=== PATIENT | female | born 1980 | race Two or more races ===

== ENCOUNTER → 2024-08-14 | Outpatient (CLI) | payer MEDICAID, SELFPAY ==
--- NOTE | 2024-08-14 10:30 | XR_ITS ---
Examination: MRI abdomen, without contrast Date and time of exam: August 14, 2024 1104 hrs. Indications: Upper abdominal pain radiating to the back after eating beginning 4 months ago Technique: Multiple axial sagittal and coronal images of the abdomen have been obtained with the Siemens high-resolution 1.5 Leah MRI scanner. Images obtained include T2-weighted fat-suppressed sagittal sections, TR 3500, TE 46, T2 weighted coronal fat suppressed images, TR 3050, TE 84, T2-weighted transverse fat suppressed images, TR 3260, TE 63, proton density transverse images, TR 4720 TE 46, and T1 weighted coronal images, TR 560, TE 13. Findings: No focal liver lesion Hepatomegaly 18 cm No gallstones No common hepatic or common bile duct stones Negative for pancreatitis No dilated pancreatic duct Spleen is not enlarged No hydronephrosis No ascites Aorta normal size Impression: Mild to moderate hepatomegaly Normal gallbladder Normal common hepatic common bile duct Negative for pancreatitis Follow-up hepatobiliary sonography is still recommended
== END | disposition home or self-care (01) ==
LOC: SMRI 10:31
PROVIDERS: Referring Provider Physician Assistant; Visit Provider Physician Assistant
DX: R16.0 Hepatomegaly, not elsewhere classified (principal)
CPT/HCPCS: 74181

== ENCOUNTER 2024-10-28 21:21 | Emergency (ER) | payer MEDICAID, SELFPAY ==
[2024-10-28 21:22] VITALS: BMI 33.2
--- NOTE | 2024-10-28 21:29 | XR_ITS ---
EXAMINATION: Ankle, right 3 views . Technique: Ankle AP, oblique, lateral 3 views Date and time of exam: October 28, 2024 2146 hours INDICATIONS: Twisting ankle study with ankle pain FINDINGS: Lateral malleolar soft tissue swelling No acute fracture, tiny bone density at the fibular tip Small plantar posterior bony calcaneal spurs IMPRESSION: No acute fracture, no dislocation
[2024-10-28 22:42] VITALS: BP 126/78; PULSE 89; RESP 18; TEMP 36.6; O2SAT 99
--- NOTE | 2024-10-29 03:47 | EDNOTE_ITS ---
<Statement entered by Nikole James MD - 10/29/24 05:22> As co-signing physician, I was present and available for consult prn. I concur with the plan and care as documented by the midlevel provider. Lower Extremity Injury RME/HPI General Chief Complaint: Ankle/Foot Injury Stated Complaint: RIGHT ANKLE SWELLING AND PAIN Time Seen by Provider: 10/28/24 22:35 Arrival date/time: 10/28/24 21:21 44F with history of DM presents to ED with R ankle pain/swelling after she twisted it. Limitations: no limitations Related Data Home Medications ?Medication ?Instructions ?Recorded ?Confirmed metformin 850 mg tablet 850 mg PO BID 07/24/2007/24 Previous Rx's ?Medication ?Instructions ?Recorded amoxicillin 875 mg-potassium 1 tab PO BID #10 tabs clavulanate 125 mg tablet (Augmentin) blood sugar diagnostic (Blood #100 ea 07/28/20 Glucose Test strips) blood-glucose meter (Blood Glucose #1 ea 07/28/20 Monitoring kit) doxycycline hyclate 100 mg tablet 100 mg PO BID #10 ta bs 07/28/20 insulin glargine 100 unit/mL (3 15 unit (0.15 mL) subc ut BID #15 mL 07/28/20 mL) subcutaneous pen (Basaglar KwikPen U-100 Insulin) lancets 33 gauge (BD Ultra Fine #100 ea 07/28/20 Lancets) magnesium oxide 400 mg (241.3 mg 400 mg PO QDAY #14 ta bs 07/28/20 magnesium) tablet pen needle, diabetic 31 gauge x #50 ea 07/28/20 1 (Lite Touch Insulin Pen [place]) potassium chloride 20 mEq 40 meq (2 x 20 mEq) PO BIDWM #20 07/28/20 tablet,extended release(part/cryst) tabs thiamine HCl (vitamin B1) 100 mg 100 mg PO QDAY #30 ta bs 07/28/20 tablet (Vitamin B-1) Allergies Allergy/AdvReac Type Severity Reaction Status Date / Time No Known Allergies Allergy Verified 10/28/24 21:22 Review of Systems Review of Systems Systems Reviewed: All systems reviewed, normal except as documented Constitutional Constitutional: Reports system reviewed and no additional complaints, except as documented, Denies fever(s) and Denies headache(s) ENT Ears, Nose, Mouth, and Throat: Denies disequilibrium and Denies headache(s) Cardiovascular Cardiovascular: Reports system reviewed and no additional complaints, except as documented, Denies chest pain and Denies dyspnea Respiratory Respiratory: Reports system reviewed and no additional complaints, except as documented, Denies cough and Denies dyspnea Gastrointestinal Gastrointestinal: Reports system reviewed and no additional complaints, except as documented, Denies abdominal pain, Denies nausea and Denies vomiting Musculoskeletal Musculoskeletal: Reports as per HPI, Reports arthralgias and Reports joint swelling Neurologic Neurologic: Reports system reviewed and no additional complaints, except as documented, Denies confusion, Denies disequilibrium and Denies headache(s) Psychiatric Psychiatric: Denies confusion Past Medical History Past Medical History NEUROLOGIC: Negative Neurological Disorders or Seizures CARDIAC: Negative Cardiac Disorders or Congestive Heart Failure RESPIRATORY: Negative Chronic Obstructive Pulmonary Disease (COPD) or Asthma GASTROINTESTINAL: Negative Gastrointestinal Disorders GENITOURINARY: Negative Genitourinary Disorders or Renal Disease MUSCULOSKELETAL: Negative Musculoskeletal Disorders ENDOCRINE: Positive Endocrine Disorders and Diabetes Mellitus Type 2; Negative Diabetes Mellitus Type 1 HEMATOLOGIC: Negative Blood Disorders or Sickle Cell Disease OTHER HISTORY: Positive Hospitalization and Chicken Pox; Negative Autoimmune Disease, Blood Transfusions, Blood Transfusion Reaction, Anesthesia Reactions, Organ Transplant, MRSA, VRSA, Vancomycin-Resistant Enterococci, Human Immunodeficiency Virus (HIV), Measles, Mumps, Rubella ([place] Measles), Pertussis, Clostridium Difficile or Cancer Family History FAMILY HISTORY: Negative Family Psychiatric Problems, Family Respiratory Disorders, Family Cardiac Disorders, Family Gastrointestinal Problems, Family Cancer, Family Surgery or Family Anesthesia Reaction Surgical History SURGICAL: Positive Section; Negative Organ Transplant Social History SMOKING STATUS: Never smoker ED Exam General Limitations: Present no limitations General appearance: Present alert and in no apparent distress Head Head exam: Present atraumatic Eye Eye exam: Present normal appearance, PERRL and EOMI ENT ENT exam: Present normal exam, normal oropharynx and mucous membranes moist Neck Neck exam: Present normal inspection, full ROM and trachea midline Chest Chest inspection: Present normal inspection and symmetric chest wall rise Respiratory Respiratory exam: Present normal lung sounds bilaterally Cardiovascular Cardiovascular exam: Present regular rate, normal rhythm and normal heart sounds Abdominal Exam Abdominal exam: Present soft and normal bowel sounds Extremities Exam Extremities exam: Present full ROM Expanded Lower Extremity Exam Ankle exam: Present full ROM, tenderness (R) and swelling Back Exam Back exam: Present normal inspection and full ROM Neurological Exam Neurological exam: Present alert, oriented X3 and CN II-XII intact Psychiatric Psychiatric exam: Present normal affect and normal mood Skin Skin exam: Present warm, dry, intact and normal color Course Quality Measures none Orders Category Date Time Status Crutches .NOW Care 10/28/24 22:36 Completed pily wrap [Splint / Immobilizer] STAT Care 10/28/24 22:36 Completed XR ankle comp RT min 3V Stat Exams 10/28/24 21:29 Completed Vital Signs Vital signs: Vital Signs Temperature 98 F 10/28/24 22:42 Pulse Rate 89 10/28/24 22:42 Respiratory Rate 18 10/28/24 22:42 Blood Pressure 126/78 10/28/24 22:42 Pulse Oximetry (%) 99 10/28/24 22:42 Oxygen Delivery Method Room Air 10/28/24 22:42 O2 at 99% on RA and WNLs Extremity Injury, Lower MDM Narrative MDM Narrative:: 44F with history of DM presents to ED with R ankle pain/swelling after she twisted it. Physical exam reveals R ankle tenderness and swelling. ROM intact. Patient is afebrile, calm, and alert. XR no fx. Given PILY, crutches, and dianetic counselor. Patient data External records reviewed:: [facility] previous records Clinical information provided by:: patient Social determinants that could affect healthcare access:: none Patient has the following chronic illnesses:: DM How is presenting disease/condition affected by chronic disease/condition?: uneffected by Evaluation data The following diagnostics were reviewed and interpreted by me:: radiology exam(s) Lab and/or radiology exams considered but not ordered:: ordered Interpretation Summary: above Medications / Prescriptions Medications or Prescriptions considered but not ordered:: not ordered Medication administrations:: n/a Consultations Consultation(s) initiated? (list below): No Diagnosis Extremity Injury, Lower Differential Diagnosis: ankle sprain and strain, acute internal derangement of knee, puncture wound of foot, fracture of toe and ankle fracture Most likely diagnosis given after review of the tests above:: ankle sprain and strain Admission Indicated Admission indicated?: not indicated Admission Request Was there a request for admission?: No Disposition Plan Disposition Plan: Discharge Discharge Attestation Discharge Attestation: The patient and all family members were given an opportunity to ask questions and understood the discharge instructions. Discharge instructions specifically effects, indications for sooner follow up or return to the emergency department, and the expected course of current diagnosis. Patient condition: Stable Discharge Plan Plan Patient Disposition: HOME (Self Care) Discharge Disposition comment: Stable Prescriptions/Referrals Prescriptions/Med Rec: No Action metformin 850 mg Tablet 850 mg PO BID thiamine HCl (vitamin B1) [Vitamin B-1] 100 mg Tablet 100 mg PO QDAY Qty: 30 0RF potassium chloride 20 mEq Tablet,Er Particles/Crystals 40 meq PO BIDWM Qty: 20 0RF magnesium oxide 400 mg (241.3 mg magnesium) Tablet 400 mg PO QDAY Qty: 14 0RF amoxicillin-pot clavulanate [Augmentin] 875-125 mg tablet 1 tab PO BID Qty: 10 0RF doxycycline hyclate 100 mg tablet 100 mg PO BID Qty: 10 0RF Basaglar KwikPen U-100 Insulin 100 unit/mL (3 mL) insulin pen 15 unit subcut BID Qty: 15 0RF (DME) blood-glucose meter [Blood Glucose Monitoring] Kit See Rx Instructions .ROUTE .MEDSUPPLY Qty: 1 0RF Rx Instructions: As directed check BS 3 times daily (DME) Blood Glucose Test Strip See Rx Instructions .ROUTE .MEDSUPPLY Qty: 100 0RF Rx Instructions: As directed check BS 3 times daily (DME) pen needle, diabetic [Lite Touch Insulin Pen [place]uda] 31 gauge x 1/4 needle See Rx Instructions .ROUTE .MEDSUPPLY Qty: 50 0RF Rx Instructions: As directed check BS 3 times daily (DME) lancets [BD Ultra Fine Lancets] 33 gauge misc See Rx Instructions .ROUTE .MEDSUPPLY Qty: 100 0RF Rx Instructions: As directed check BS 3 times daily Referrals: Del Mendoza PA-C [Primary Care Provider] - In 1 week Problem List Clinical Impression: Sprain of ankle Patient/Caregiver Discharge Instructions Education Materials: ED Ankle Sprain (Adult) Additional Instructions: Please follow-up with PCP within 24-48 hours and return immediately if symptoms worsen. If problem persists, recommend outpatient PT and/or MRI follow-up. In the meantime, rest, use ice/heat, and/or compression. Print Language: Lao Stand Alone Forms: Patient Portal Info Letter LB/MAREK Supervising Physician LB/MAREK Supervising Physician: Dr. James
== END 2024-10-28 22:51 | disposition home or self-care (01) ==
PROVIDERS: Emergency Provider Emergency Medicine; PCP Physician Assistant
DX: S93.401A Sprain of unspecified ligament of right ankle, initial encounter (principal); X50.1XXA Overexertion from prolonged static or awkward postures, initial encounter
CPT/HCPCS: 73610; 99283

== ENCOUNTER 2025-01-23 21:51 | Emergency (ER) | payer MEDICAID, SELFPAY ==
[2025-01-23 21:57] VITALS: BP 106/69; PULSE 98; RESP 18; TEMP 36.8; O2SAT 100
--- NOTE | 2025-01-24 01:10 | XR_ITS ---
Examination: CT abdomen with intravenous contrast CT pelvis with intravenous contrast 2-D coronal reconstructions 2-D sagittal reconstructions Date and time of exam:January 24, 2025, 0410 hours, comparison December 23, 2022. INDICATIONS: Upper abdominal pain today, history diverticulosis.. CTDI: vol (mGy) 9.63 DLP: (mGycm) 542 Technique: Multiple axial sections of the abdomen and pelvis have been obtained. 64 slice high-resolution scanner used. 3 mm axial sections have been obtained, post intravenous injection of 60 cc [id number] 2-D sagittal, coronal reconstructions obtained. Low dose protocols were performed. One or more of the following dose reduction techniques were used; automated exposure control, adjustment of the mA and/or KV according to patient size, use of iterative reconstruction technique. Findings: No focal liver or splenic lesions No gallstones. No pancreatic or adrenal mass. No renal or ureteral calculi, no hydronephrosis Aorta normal size No bowel obstruction No pelvic mass Urinary bladder intact The osseous structures are intact Normal appendix IMPRESSION: No acute process in the abdomen or pelvis
--- NOTE | 2025-01-24 01:20 | PD.EDRME ---
Rapid Medical Screening Exam RME Arrival date/time: 01/23/25 21:51 Chief Complaint: Abdominal Pain Time Seen by Provider: 01/24/25 00:36 Vital signs: Vital Signs Temperature 98.3 F 01/23/25 21:57 Pulse Rate 98 01/23/25 21:57 Respiratory Rate 18 01/23/25 21:57 Blood Pressure 106/69 01/23/25 21:57 Pulse Oximetry (%) 100 01/23/25 21:57 Oxygen Delivery Method Room Air 01/23/25 21:57 Vital signs reviewed by provider: Yes RME Narrative: 44-year-old female with a past medical history of diabetes and diverticulosis presents to the ED with a complaint of left-sided abdominal pain with nausea. She denies any fever or chills, vomiting, diarrhea, melena, urinary frequency or dysuria. She does have a history of diverticulosis. I have greeted and performed a focused initial assessment of this patient. A comprehensive ED assessment and evaluation of the patient, analysis of all test results, and completion of the medical decision making process will be conducted by additional ED providers.
[2025-01-24 01:59] VITALS: BP 107/62; PULSE 74; RESP 24; TEMP 36.6; O2SAT 98
[2025-01-24 01:59] LABS: Collection Type, Urine Clean Catch
[2025-01-24] MEDS: ONDANSETRON INJ 2 MG/ML INJ 2 ML 4 MG IVP (02:06)
[2025-01-24] MEDS: SODIUM CHLORIDE 0.9% 1000 ML 1,000 ML 999 ML IV (02:07)
[2025-01-24 02:08] LABS: HCG Qualitative,Urine Negative
[2025-01-24 02:13] LABS: Bacteria,Urine Rare; Bilirubin,Urine Negative (Negative); Blood,Urine Negative (Negative); Clarity,Urine Clear (Clear/Hazy); Color,Urine Yellow (Lt Yel-Yel); Culture Indicated,Urine Not Indicated; Glucose, Urine 4+ (Negative); Ketones,Urine Negative (Negative); Leukocyte Esterase,Urine Negative (Negative); Nitrite,Urine Negative (Negative); PH,Urine 6.5 (5.0-7.0); Protein,Urine Negative (Neg - Trace); RBC,Urine 2 /hpf (0-3); Specific Gravity,Urine 1.024 (1.001-1.035); Squamous Epithelial Cell,Urine 6 /hpf (0-5); Urobilinogen,Urine Negative mg/dL (0.0-1.0); WBC,Urine 1 /hpf (0-5)
[2025-01-24 02:14] LABS: Amphetamine/Methamp Scrn,U Negative (Negative); Barbiturate Screen,Urine Negative (Negative); Benzodiazepines Screen,Urine Negative (Negative); Benzoylecgonine Screen, Ur Negative (Negative); Fentanyl Screen,Urine Negative (Negative); Opiate Screen,Urine Negative (Negative); THC Screen,Urine Negative (Negative)
[2025-01-24 02:19] LABS: Basophils # (Auto) 0.0 Thou/mm3 (0.0-0.2); Basophils % (Auto) 1 % (0-2.5); Eosinophils # (Auto) 0.1 Thou/mm3 (0.0-0.5); Eosinophils % (Auto) 1 % (0-10); Hematocrit 37.0 % (36.0-46.0); Hemoglobin 11.9 g/dL (12.0-16.0); Immature Granulocytes Auto 0.02 Thou/mm3 (0.00-0.00); Lymphocytes # (Auto) 2.5 Thou/mm3 (1.0-4.8); Lymphocytes % (Auto) 36 % (10-50); Mean Corpuscular HGB Conc 32.2 g/dl (31.0-37.0); Mean Corpuscular Hemoglobin 27.7 pg (25.0-35.0); Mean Corpuscular Volume 86 fL (80-100); Monocytes # (Auto) 0.4 Thou/mm3 (0.0-0.8); Monocytes % (Auto) 6 % (0-12); Neutrophils # (Auto) 3.9 Thou/mm3 (1.8-7.7); Neutrophils % (Auto) 57 % (37-80); Nucleated Red Blood Cell # 0.00 Thou/mm3 (0.00-0.00); Nucleated Red Blood Cell % 0 /100 WBC (0); Platelet Count 310 Thou/mm3 (140-440); RDW Standard Deviation 41.9 fL (36.4-46.3); Red Blood Count 4.29 Miln/mm3 (4.00-5.20); White Blood Count 6.9 Thou/mm3 (3.6-11.0)
[2025-01-24 02:20] LABS: Lactate (Lactic Acid) 1.7 mMol/L (0.4-2.0)
[2025-01-24 02:39] LABS: Alanine Aminotransferase 14 U/L (10-49); Albumin, Serum 4.2 gm/dL (3.5-5.0); Albumin/Globulin Ratio 1.6 (1.2-2.2); Alkaline Phosphatase 90 U/L (46-116); Amylase 43 U/L (30-118); Anion Gap 9 (7-16); Aspartate Amino Transferase 18 U/L (0-34); BUN/Creatinine Ratio 11 Ratio (12-20); Bilirubin,Total 0.5 mg/dL (0.3-1.2); Blood Urea Nitrogen 8 mg/dL (9-23); C-Reactive Protein < 0.5 mg/dL (0.0-0.9); Calcium 9.0 mg/dL (8.3-10.6); Calcium (Corrected) 9.0 mg/dL (8.5-10.1); Carbon Dioxide 27.3 mMol/L (20.0-31.0); Chloride 104 mMol/L (98-107); Creatinine (Component) 0.7 mg/dL (0.6-1.3); Globulin 2.7 gm/dL (2.3-3.5); Glucose 268 mg/dL (74-106); Lipase 35 U/L (12-53); Magnesium 1.4 mg/dL (1.6-2.6); Osmolality,Calculated 286 (275-295); Phosphorous 2.9 mg/dL (2.4-5.1); Potassium 3.4 mMol/L (3.4-5.1); Sodium 140 mMol/L (136-145); Total Protein 6.9 gm/dL (5.7-8.2); eGFR > 60 See Note
[2025-01-24 02:45] LABS: Procalcitonin < 0.04 ng/ml (0.0-0.49)
--- NOTE | 2025-01-24 02:54 | PD.EDABDPN ---
ED Abdominal Pain RME/HPI General Chief Complaint: Abdominal Pain Stated complaint: LEFT UPPER ABD PAIN Time seen by provider: 01/24/25 00:36 Arrival date/time: 01/23/25 21:51 RME / HPI RME / HPI narrative: 44-year-old female with a past medical history of diabetes and diverticulosis presents to the ED with a complaint of left-sided abdominal pain with nausea. She denies any fever or chills, vomiting, diarrhea, melena, urinary frequency or dysuria. She does have a history of diverticulosis. I have greeted and performed a focused initial assessment of this patient. A comprehensive ED assessment and evaluation of the patient, analysis of all test results, and completion of the medical decision making process will be conducted by additional ED providers. DR. RUIZ MAIN ED EVALUATION: 44 y/o female with Hx of Diverticulosis presents to ED c/o LLQ abdominal pain and severe nausea x 3 days. States symptoms feel similar to when she had diverticulitis. Patient was treated and told that she no longer had diverticulitis during completion of prescription. Patient also states that she completed an antibiotic regimen just 3 weeks ago for an infection in her stomach. Denies any fever and vomiting. Patient's LMP was 01/08/2025. No other concerns or complaints expressed at this time. Related Data LMP Date: 01/08/25 Home Medications ?Medication ?Instructions ?Recorded ?Confirmed metformin 850 mg tablet 850 mg PO BID 07/24/20 07/24/20 Previous Rx's ?Medication ?Instructions ?Recorded amoxicillin 875 mg-potassium 1 tab PO BID #10 tabs 07/28/20 clavulanate 125 mg tablet (Augmentin) blood sugar diagnostic (Blood #100 ea 07/28/20 Glucose Test strips) blood-glucose meter (Blood Glucose #1 ea 07/28/20 Monitoring kit) doxycycline hyclate 100 mg tablet 100 mg PO BID #10 tabs 07/28/20 insulin glargine 100 unit/mL (3 15 unit (0.15 mL) subcut BID #15 mL 07/28/20 mL) subcutaneous pen (Basaglar KwikPen U-100 Insulin) lancets 33 gauge (BD Ultra Fine #100 ea 07/28/20 Lancets) magnesium oxide 400 mg (241.3 mg 400 mg PO QDAY #14 tabs 07/28/20 magnesium) tablet pen needle, diabetic 31 gauge x #50 ea 07/28/20 1/ (Lite Touch Insulin Pen [place]) potassium chloride 20 mEq 40 meq (2 x 20 mEq) PO BIDWM #20 07/28/20 tablet,extended release(part/cryst) tabs thiamine HCl (vitamin B1) 100 mg 100 mg PO QDAY #30 tabs 07/28/20 tablet (Vitamin B-1) dicyclomine 20 mg tablet 20 mg PO QID PRN abdominal pain 01/24/25 #20 tabs Allergies Allergy/AdvReac Type Severity Reaction Status Date / Time No Known Allergies Allergy Verified 01/23/25 21:54 Review of Systems Review of Systems Systems Reviewed: All systems reviewed, normal except as documented Past Medical History Past Medical History GASTROINTESTINAL: Positive Diverticulosis ENDOCRINE: Positive Endocrine Disorders and Diabetes Mellitus Type 2 OTHER HISTORY: Positive Hospitalization and Chicken Pox Surgical History SURGICAL: Positive Section ED Exam Narrative Physical exam: Generally patient alert in no obvious distress. Heart is regular rate and rhythm lungs clear to auscultation equal bilaterally abdomen soft bowel sounds present nondistended with mild left lateral abdominal tenderness without rebound. No costovertebral angle tenderness. Neurologic exam no focal motor or sensory deficits cranial nerves II through XII grossly intact Course Quality Measures none Orders Category Date Time Status CT Screening NOW Care 01/24/25 01:[address] Screening X1 Care 01/24/25 01:10 Active IV [Insert IV] NOW Care 01/24/25 01:10 Active NPO STAT Care 01/24/25 01:[address] abdomen pelvis w con Stat Exams 01/24/25 01:10 Taken Amylase Stat Lab 01/24/25 01:45 Completed Blood Culture (Lab) Stat Lab 01/24/25 01:45 Received CBC Stat Lab 01/24/25 01:45 Completed CRP [C-Reactive Protein] Stat Lab 01/24/25 01:45 Completed Comprehensive Metabolic Panel Stat Lab 01/24/25 01:45 Completed Drug Screen,Urine Stat Lab 01/24/25 01:17 Completed HCG Qualitative,Urine Stat Lab 01/24/25 01:17 Completed Lactic Acid [Lactate (Lactic Acid)] Stat Lab 01/24/25 01:45 Completed Lipase Stat Lab 01/24/25 01:45 Completed Magnesium Stat Lab 01/24/25 01:45 Completed Phosphorous Stat Lab 01/24/25 01:45 Completed Procalcitonin Stat Lab 01/24/25 01:45 Completed Urinalysis, C/S if Indicated Stat Lab 01/24/25 01:17 Completed Ondansetron Inj [Zofran Inj] Med 01/24/25 01:10 Discontinued 4 mg IVP X1 ONE Sodium Chloride 0.9% 1000 ml [Ns] 1,000 ml Med 01/24/25 01:10 Discontinued IV 999 mls/hr Vital Signs Vital signs: Vital Signs Temperature 98.3 F 01/23/25 21:57 Pulse Rate 98 01/23/25 21:57 Respiratory Rate 18 01/23/25 21:57 Blood Pressure 106/69 01/23/25 21:57 Pulse Oximetry (%) 100 01/23/25 21:57 Oxygen Delivery Method Room Air 01/23/25 21:57 Abdominal Pain MDM MDM Narrative MDM Narrative:: Scribe Attestation: IBrandy, am scribing for and in the presence of Dr. Ruiz. Provider Notation: Although this document has been carefully reviewed, there may still be some phonetic and other typographical errors.? These errors are purely grammatical due to imperfections in the software program and should not be construed in any way to? compromise the substance of the patient's medical care during this visit. I interpreted all labs. There is no leukocytosis. CT scan done the abdomen pelvis with IV contrast showed no evidence of acute disease process. Patient may be experiencing bowel spasm. She will be discharged on Bentyl to be taken as prescribed. Follow-up with her doctor. Return to ER as needed or if condition worsens. Patient data External records reviewed:: [facility] previous records (Reviewed prior ED records from 10/29/24. Patient was seen for Sprain of ankle.) Clinical information provided by:: patient Social determinants that could affect healthcare access:: none Patient has the following chronic illnesses:: Diverticulosis, Diabetes Mellitus Type 2 How is presenting disease/condition affected by chronic disease/condition?: exacerbated by Evaluation data The following diagnostics were reviewed and interpreted by me:: lab results and radiology exam(s) Lab and/or radiology exams considered but not ordered:: None. Interpretation Summary: RADIOLOGY Abdomen/Pelvis CT: Findings: The lung bases are clear. The liver, gallbladder, pancreas, spleen, kidneys and adrenals are unremarkable. No evidence of bowel obstruction. The appendix is within normal limits. There is no mesenteric or retroperitoneal adenopathy. The urinary bladder is unremarkable. There is no free fluid or free air. The uterus and ovaries are within normal limits. The osseous structures are unremarkable. Impression: No evidence of acute intra-abdominal or pelvic pathology. Medications / Prescriptions Medications or Prescriptions considered but not ordered:: None. Medication administrations:: Medication Administration History Discontinued Medications Sodium Chloride (Ns) 1,000 mls @ 999 mls/hr IV .Q1H1M ONE Stop: 01/24/25 02:10 Last Infusion: 01/24/25 03:18 Dose: Infused Documented By: Admin: 01/24/25 02:07 Dose: 999 mls/hr Documented By: BOBBY Ondansetron HCl (Ondansetron Inj 2 Mg/Ml Inj 2 Ml) 4 mg IVP X1 ONE; Protocol Stop: 01/24/25 01:11 Last Admin: 01/24/25 02:06 Dose: 4 mg Documented By: BOBBY See above. Consultations Consultation(s) initiated? (list below): No Diagnosis Differential diagnosis abdominal pain: abdominal pain, acute appendicitis, constipation, diverticulitis, gastroenteritis and small bowel obstruction Most likely diagnosis given after review of the tests above:: none Admission Indicated Admission indicated?: not indicated Explain why admission is indicated or not indicated:: Patient does not meet admission criteria. Admission Request Was there a request for admission?: No Disposition Plan Disposition Plan: Discharge Discharge Attestation Discharge Attestation: The patient and all family members were given an opportunity to ask questions and understood the discharge instructions. Discharge instructions specifically effects, indications for sooner follow up or return to the emergency department, and the expected course of current diagnosis. Patient condition: Stable Discharge Plan Plan Patient Disposition: HOME (Self Care) Prescriptions/Referrals Prescriptions/Med Rec: New dicyclomine 20 mg tablet 20 mg PO QID PRN (Reason: abdominal pain) Qty: 20 0RF No Action metformin 850 mg Tablet 850 mg PO BID thiamine HCl (vitamin B1) [Vitamin B-1] 100 mg Tablet 100 mg PO QDAY Qty: 30 0RF potassium chloride 20 mEq Tablet,Er Particles/Crystals 40 meq PO BIDWM Qty: 20 0RF magnesium oxide 400 mg (241.3 mg magnesium) Tablet 400 mg PO QDAY Qty: 14 0RF amoxicillin-pot clavulanate [Augmentin] 875-125 mg tablet 1 tab PO BID Qty: 10 0RF doxycycline hyclate 100 mg tablet 100 mg PO BID Qty: 10 0RF Basaglar KwikPen U-100 Insulin 100 unit/mL (3 mL) insulin pen 15 unit subcut BID Qty: 15 0RF (DME) blood-glucose meter [Blood Glucose Monitoring] Kit See Rx Instructions .ROUTE .MEDSUPPLY Qty: 1 0RF Rx Instructions: As directed check BS 3 times daily (DME) Blood Glucose Test Strip See Rx Instructions .ROUTE .MEDSUPPLY Qty: 100 0RF Rx Instructions: As directed check BS 3 times daily (DME) pen needle, diabetic [Lite Touch Insulin Pen [place]] 31 gauge x 1/4 needle See Rx Instructions .ROUTE .MEDSUPPLY Qty: 50 0RF Rx Instructions: As directed check BS 3 times daily (DME) lancets [BD Ultra Fine Lancets] 33 gauge misc See Rx Instructions .ROUTE .MEDSUPPLY Qty: 100 0RF Rx Instructions: As directed check BS 3 times daily Referrals: Del Mendoza PA-C [Primary Care Provider] - In 1 week Problem List Clinical Impression: Abdominal pain Patient/Caregiver Discharge Instructions Print Language: Urdu Stand Alone Forms: [employer] Award Info., Patient Portal Info Letter
--- NOTE | 2025-01-24 04:51 | PRELIM_ITS ---
CT scan of the abdomen and pelvis with intravenous contrast (axial sections with sagittal and coronal reformats) January 24, 2025 at 0410 hours Clinical History: Left-sided abdominal pain with history of diverticula. Comparison: No prior study is available for comparison. Findings: The lung bases are clear. The liver, gallbladder, pancreas, spleen, kidneys and adrenals are unremarkable. No evidence of bowel obstruction. The appendix is within normal limits. There is no mesenteric or retroperitoneal adenopathy. The urinary bladder is unremarkable. There is no free fluid or free air. The uterus and ovaries are within normal limits. The osseous structures are unremarkable. Impression: No evidence of acute intra-abdominal or pelvic pathology. Report Electronically Signed By: Jeancarlos Mcdonald 01/24/2025 4:51:01 AM [EST]
[2025-01-24 05:38] VITALS: BP 107/62; PULSE 77; RESP 15; O2SAT 100
== END 2025-01-24 05:39 | disposition home or self-care (01) ==
PROVIDERS: Physician Assistant; Emergency Provider Emergency Medicine; PCP Physician Assistant
DX: R10.32 Left lower quadrant pain (principal)
CPT/HCPCS: 36415; 74177; 80053; 80307; 81001; 81025; 82150; 83605; 83690; 83735; 84100; 84145; 85025; 86140; 87040; 96361; 96374; 99283; A4649; J2405; J7030; Q9967